=== PATIENT | female | born 1945 | race Caucasian/White ===

== ENCOUNTER → 2017-01-14 | Outpatient (CLI) | payer MEDICARE, BC ==
[~2017-01-14] MED LIST: ASPIRIN EC81 M1 PO; BAYER CHEWABLE81 MG PO; IRON325 ( 651 PO; LIPITOR20 MG PO; METOPROLOL SUCC25 MG PO; METOPROLOL TAR25 MG PO; PRILOSEC PO; PRINIVIL20 M1 PO; VITAMIN D350000 UNIT PO
--- NOTE | ~2017-01-14 | MY11 ---
[facility] A Service of [facility] RADIOLOGY TEXT RESULTS PATIENT: ANDREA LE LOCATION: [facility] : 41 UNIT #: [id number] AGE: [address]: Romie Wagner MD SEX: F ORDER DR: [id number] [facility]. [place], [place] [address] [id number] O MR#: [id number] [facility] #: [id number] NAME: ANDREA LE : 1945 SEX: F STUDY DATE/TIME: 01/14/2017 11:06 UNIT: [facility] ROOM: STUDY DESCRIPTION: MY Mammogram Screening Dig Santana Attending Physician: Romie Wagner M.D. Referring Physician: Claire Meehan A.P.R.N. Ordering Physician: Romie Wagner M.D. Primary Care Physician: Romie Wagner M.D. MEDICAL IMAGING REPORT This report is preliminary unless electronic signature is present EXAM Digital screening mammogram 01/14/2017 HISTORY 71-year-old woman positive family history, sister age 72. Annual screen. COMPARISON 04/16/2010, 05/01/2012, 08/08/2014. FINDINGS Digital imaging of each breast was completed utilizing standard craniocaudal and mediolateral-oblique projections. Review and interpretation of digital mammograms include a second review in conjunction with FDA-approved CAD device. There is an overall increase in the parenchymal presentation bilaterally with a generalized fibronodular pattern in each breast. There are no breast masses and I see no asymmetry in the parenchymal presentation. There are no suspicious microcalcifications and I see no architectural disturbance. IMPRESSION Benign mammogram. One-year followup recommended. Patients over the age of 40 are entered into a reminder system with target due date for the next mammogram. A result letter will also be sent to the patient. BIRADS: 2 Benign finding Dictated by... Slava Ya M.D. [facility] A Service [facility] RADIOLOGY TEXT RESULTS PATIENT: ANDREA LE LOCATION: [facility] : 41 UNIT #: [id number] AGE: [address]: Romie Wagner MD SEX: F ORDER DR: THIS IS AN ELECTRONICALLY VERIFIED REPORT Slava Ya M.D. at 01/14/2017 2:17 PM SUZI/lopez TD: 01/14/2017 14:06 JOB #: [id number] MEDICAL IMAGING REPORT Page 1 of 1 COPY
== END | disposition home or self-care (01) ==
LOC: CWCC 10:29
DX: Z12.31 Encounter for screening mammogram for malignant neoplasm of breast (principal); Z80.3 Family history of malignant neoplasm of breast
CPT/HCPCS: G0202